=== PATIENT | female | born 1965 | race Caucasian/White ===

== ENCOUNTER 2018-03-18 02:09 | Inpatient (IN) | payer OTHER ==
[~2018-03-18] VITALS: Ht 154.9 cm; Wt 75.7 kg
[~2018-03-18 02:09] MED LIST: MAPAP500 M3 PO; TYLENOL PM EX-1 EACH PO; VIVANCE PO
--- NOTE | 2018-03-18 14:50 | Operative Report ---
Operative/Inv Procedure Report Surgery Date: 03/18/18 Name of Procedure: Right total hip replacement Pre-Operative Diagnosis: Primary right hip DJD Post-Operative Diagnosis: Same Estimated Blood Loss: 250 Surgeon/Fire Alarm Mechanic: Emiliana DURAN,Jose Maria Sosa Anesthesia: block Operative/Procedure Note Note: Description of Procedure: The patient was taken to the operating room and positively identified. After induction of spinal anesthesia and administration of appropriate pre-operative antibiotics, the patient was positioned supine on the operating room table and all bony prominences were well padded. After performing a surgical timeout, the right lower extremity was prepped and draped in the usual sterile fashion. A direct anterior approach was made to the right hip. The incision was carried sharply through superficial soft tissues to the level of the fascia. Meticulous hemostasis was maintained with Bovie electocautery. The fascia over the tensor fascia megan muscle was opened sharply and the interval between the TFL and the sartorius was entered bluntly taking care to stay lateral to the lateral femoral cutaneous nerve. Retractors were placed around the femoral neck and the pericapsular fat was identified. The ascending branches of the lateral femoral circumflex vessels were identified and carefully coagulated. The pericapsular fat and anterior capsule were then resected. A napkin ring osteotomy was performed and the femoral head was removed without difficulty. Attention was then turned to the acetabulum. After appropriate placement of retractors, the acetabulum was exposed. Soft tissue was cleaned from the acetabular margin and notch. Overhanging osteophytes were removed and the teardrop was exposed. The acetabulum was then sequentially reamed to accept a 52 mm Florencia Tritanium hemispherical solid shell. This was impacted into place in the appropriate position and fitted with a 32 mm Trident X3 zero degree polyethylene insert. Attention was then turned to the femur. After performing the appropriate ligament releases, the proximal femur was exposed. It was then sequentially broached to accept a size 3 Florencia Accolade II stem. This was trialed for leg length and stability. The trial component was removed and the final component was impacted into place. The trunnion was carefully cleaned and fit with a 32 mm, +0 Biolox delta ceramic femoral head. The hip was reduced and put through a full range of motion and found to be stable. The articular space was then irrigated with sterile saline. The periarticular soft tissues were infilitrated with Marcaine. The fascial layer was closed with interrupted #1 vicryl suture and the skin was re-approximated with interrupted 2 -0 vicryl. The skin was closed with a running 3-0 V-Lock suture. Steri-strips and a sterile dressing were applied. The patient was awakened and taken to the recovery room in satisfactory condition.
--- NOTE | 2018-03-18 14:55 | RADIOLOGY REPORT ---
EXAMINATION: XR HIP, RIGHT CLINICAL INFORMATION: Status post right total hip replacement in PACU. COMPARISON: None TECHNIQUE: Two views of the right hip. FINDINGS: The patient is status post total right hip arthroplasty with the prosthetic components well seated within the acetabulum and the femur. No hardware failure or [place] bone fracture is seen. Mild postoperative changes are seen with subcutaneous emphysema noted. IMPRESSION: No hardware failure or [place] bone fracture seen status post total right hip arthroplasty. Alignment is anatomic.
[2018-03-18] MEDS ORDERED: ASPIRIN EC81 M1 PO (15:39)
[2018-03-18] MEDS ORDERED: COLACE100 M1 PO (15:39)
[2018-03-18] MEDS ORDERED: PRILOSEC OTC20 M1 PO (15:39)
[2018-03-18] MEDS ORDERED: DILAUDID2 M1 PO (15:39)
[2018-03-18] MEDS ORDERED: MIRALAX17 G1 PO (15:39)
--- NOTE | 2018-03-18 15:43 | Patient Discharge Instructions ---
Discharge Instructions General Discharge Information You were seen/treated for: Right hip pain related to unilateral primary osteoarthritis You had these procedures: Right total hip replacement Watch for these problems: Increasing pain despite the use of pain medication Increasing redness, warmth or swelling Drainage of any type from incision Inability to bear weight on operative leg Persistent nausea and vomiting Fever greater than 101.5 degrees Do not soak the wound: Yes No bath, but you may shower: Yes Other wound care: Please keep wound clean and dry. No ointments or lotions of any type on or near incision at any time. No exceptions. Your dressing will be changed by your nurse on the second day after your surgery. Daily dry dressing changes are recommended each day thereafter. Do not soak your wound in a bath or pool at any time until otherwise indicated by your surgeon. You may shower, please dry wound immediately after shower with a clean towel. Special Instructions: Aspirin: You are taking this medication to help prevent blood clot formation. Please take with food to protect your stomach lining. Please take as directed. Constipation: Pain medication can cause constipation. Your surgeon has recommended that you take Colace and miralax each day. You may discontinue this medication if you develop loose stool or diarrhea. If you wish to continue this medication, it is available over the counter. If you are unable to move your bowels after several days, if you are unable to pass gas and are developing bloating, nausea, or vomiting as a result, please contact your doctor. Diet Continue normal diet: Yes Recommended Diet: Regular Activity Full Activity/No Limits: No Activity Self Limited: Yes Pounds, do NOT lift more than: 10 Acute Coronary Syndrome Inclusion Criteria At DC or during hospital stay patient has or had the following: ACS DIAGNOSIS No Discharge Core Measures Meds if any: Prescribed or Continued at Discharge Meds if any: NOT Prescribed or Continued at Discharge Congestive Heart Failure Inclusion Criteria At DC or during hospital stay patient has or had the following: CHF DIAGNOSIS No Discharge Core Measures Meds if any: Prescribed or Continued at Discharge Meds if any: NOT Prescribed or Continued at Discharge Cerebrovascular accident Inclusion Criteria At DC or during hospital stay patient has or had the following: CVA/TIA Diagnosis No Discharge Core Measures Meds if any: Prescribed or Continued at Discharge Meds if any: NOT Prescribed or Continued at Discharge Venous thromboembolism Inclusion Criteria VTE Diagnosis No VTE Type NONE VTE Confirmed by (Test) NONE Discharge Core Measures - Per Current guidelines, there needs to be overlap - treatment for the first 5 days of Warfarin therapy. - If discharged on Warfarin prior to 5 days of - overlap therapy, the patient will need to be - assessed for post discharge needs including - *Post discharge parental anticoagulation - *Warfarin and/or parental anticoagulation education - *Follow up date to check INR post discharge At least 5 days overlap therapy as Inpatient No Meds if any: Prescribed or Continued at Discharge Note: Overlap Therapy is Warfarin and Anticoagulant Meds if any: NOT Prescribed or Continued at Discharge
--- NOTE | 2018-03-18 15:48 | Surgical Discharge Summary ---
Visit Information Visit Dates Admission Date: 03/18/18 Discharge Date: 03/20/18 History of Present Illness Chief Complaint: Right hip pain related to unilateral primary osteoarthritis Surgical History Pertinent Surgical History: non-contributory Review of Systems: See H&P Hospital Course Course Attending Physician: Jose Maria Hopson MD Primary Care Physician: Quique DURAN,[facility] Course: Patient was admitted to the hospital for an elective total joint replacement. The procedure was tolerated well and patient was transferred to a general surgical floor. Diet was advanced and tolerated. The patient was evaluated and treated by physical therapy. At the time of hospital discharge, the vital signs were stable, neurovascular status was intact, and pain was controlled with the use of oral pain medications. Allergies: Coded Allergies: No Known Allergies (03/15/18) Disposition Summary Disposition Principal Diagnosis: Unilateral primary osteoarthritis right hip Additional Diagnosis: None Discharge Disposition: home health services Discharge Instructions General Discharge Information Code Status: Full Code Patient's Diet: Regular, advance as tolerated Patient's Activity: WBAT Follow-Up Instructions/Appts: Follow up with Dr. Hopson in 6 weeks from date of surgery. Please call office to arrange &/or confirm this appointment. Medications at Discharge Discharge Medications: Continue taking these medications: Acetaminophen (Mapap) 500 MG TABLET 2-3 Tablet ORAL as needed for PAIN Comments: 1000MG IV TYLENOL Last Taken:03/19/18 Time:1122AM [VIVANCE] 60 Milligram ORAL DAILY Comments: NOT GIVEN IN HOSPITAL Acetaminophen/Diphenhydramine (Tylenol Pm Ex-Strength Caplet) 500 MG-25 MG TABLET 1 Tablet ORAL DAILY Comments: NOT GIVEN IN HOSPITAL Start taking the following new medications: Aspirin (Ecotrin*) 81 MG TABLET.DR 1 Tablet ORAL TWICE DAILY Qty = 60 No Refills Comments: Last Taken:03/20/18 Time:0800AM Docusate Sodium (Colace) 100 MG CAPSULE 1 Capsule ORAL TWICE DAILY Qty = 14 No Refills Instructions: DISCONTINUE USE IF YOU DEVELOP LOOSE STOOL OR DIARRHEA Comments: Last Taken:03/20/18 Time:0800AM Polyethylene Glycol 3350 (Miralax) 17 GRAM POWD.PACK 1 Packet ORAL DAILY Qty = 7 No Refills Instructions: dissolve in water, DISCONTINUE USE IF YOU DEVELOP LOOSE STOOL OR DIARRHEA Comments: Last Taken:03/20/18 Time:0800AM Omeprazole Magnesium (Prilosec Otc) 20 MG TABLET.DR 2 Tablet ORAL DAILY Qty = 60 No Refills Comments: Last Taken:03/20/18 Time:0600AM Hydromorphone HCl (Dilaudid) 2 MG TABLET 1-2 Tablet ORAL EVERY 4-6 HOURS NEEDED as needed for PAIN Qty = 36 No Refills Comments: Last Taken:03/20/18 Time:0600AM 4MG GIVEN
--- NOTE | 2018-03-18 16:35 | PN- Orthopedic ---
Subjective Subjective: POC pt recovering well in PACU, minimal pain. Denies numbness but does still have tingling in both lower extremities. Tolerating ice chips, no nausea. Due to void Deneis CP, SOB and NEGRO Objective Vital Signs and I&Os VSS, afebrile Physical Exam: gen- NAD resp- clear cardiac- RRR abd- soft NT ext- R hip dressing clean and dry, thigh is soft, no erythema. No leg shortening or rotation. Distal sensory and motor function intact. 2+ DP pulse Current Medications: Current Medications Sig/Jannie Start time Last Medication Dose Route Stop Time Status Admin Acetaminophen 0 .STK-MED ONE 03/18 1039 DC PO Acetaminophen 975 MG ONCE 03/18 0000 NR PO 03/18 2359 Cefazolin Sodium 2,000 MG ONCE 03/18 0000 NR IV 03/18 2359 Oxycodone HCl 0 .STK-MED ONE 03/18 1039 DC PO Oxycodone HCl 10 MG ONCE 03/18 0000 NR PO 03/18 2359 Scopolamine HBr 0 .STK-MED ONE 03/18 1045 DC TOP Results Last 48 Hours of Labs: Laboratory Tests 03/18 0911 Urines Urine Test NEGATIVE Assessment/Plan Assessment/Plan 52yo F SP R EUGENE POD0. stable pain management PT- WBAT w RW reg diet, IVF overnight FU am labs regular home meds DVT ppx- asa, teds, alps dressing change POD2 DC planning- likely home tomorrow Core Measures Venous Thromboembolism VTE Risk Factors Surgery No Mechanical VTE Prophylaxis d/t N/A MechProphylax Ordered No VTE Pharm Prophylaxis d/t NA PharmProphylax ordered
[2018-03-18 16:55] VITALS: BP 100/60
[2018-03-18 20:03] VITALS: BP 108/64
[2018-03-18 22:09] VITALS: BP 106/64
[2018-03-19 00:06] VITALS: BP 104/68
[2018-03-19 04:04] VITALS: BP 100/68
--- NOTE | 2018-03-19 07:23 | PN- Orthopedic ---
Subjective Subjective: pt doing well, had some pain overnight but is now more comfortable. Voiding, was OOB to bathroom. Tolerating diet, no nausea. Denies paresthesias Denies CP/SOB and NEGRO Objective Vital Signs and I&Os Vital Signs Date Time Temp Pulse Resp B/P B/P Pulse O2 O2 Flow FiO2 Mean Ox Delivery Rate 03/19 0404 98.1 63 20 100/68 99 03/19 0006 97.9 61 20 104/68 99 03/18 2209 97.9 62 20 106/64 100 Room Air 03/18 2003 98.2 69 18 108/64 96 Room Air 03/18 1655 Room Air 03/18 165 97.8 76 18 100/60 100 Room Air Intake & Output 03/19 0800 03/19 0000 03/18 1600 03/18 0803/18 0000 03/17 1600 Intake Total 720 1300 Output Total 350 Balance 370 1300 Intake, IV 600 600 Intake, Oral 120 700 Output, Urine 350 Patient 167 lb Weight Physical Exam: gen- NAD resp- clear cardiac-RRR abd- soft, NT ext- Right hip dressing clean and dry, thigh soft, no erythema. distal sensory and motor function intat. 2+DP pulse. no leg shortening or rotation Current Medications: Current Medications Sig/Jannie Start time Last Medication Dose Route Stop Time Status Admin Acetaminophen 1,000 MG Q6 03/18 1800 AC 03/19 IV 03/19 1201 0555 Acetaminophen 0 .STK-MED ONE 03/18 1039 DC PO Acetaminophen 975 MG ONCE 03/18 0000 DC PO 03/18 2359 Aspirin Buffered 81 MG BID 03/18 2100 AC 03/18 PO 1933 Cefazolin Sodium 2 GM Q8H 03/18 1900 DC 03/19 N/A 1 UNIT IV 03/19 0329 0241 Cefazolin Sodium 2,000 MG ONCE 03/18 0000 DC IV 03/18 2359 Dexamethasone 4 MG .STK-MED ONE 03/18 1038 DC IM 03/18 1039 Dextrose/Sodium 1,000 ML .[id number] 03/18 1700 AC 03/19 Chloride IV 0241 Docusate Sodium 100 MG BID 03/18 2100 AC 03/18 PO 1933 Fentanyl Citrate 100 MCG .STK-MED ONE 03/18 1038 DC IM 03/18 1039 Hydromorphone HCl 2 MG Q4P PRN 03/18 1700 AC 03/19 PO 0600 Hydromorphone HCl 4 MG Q4P PRN 03/18 1700 AC 03/19 PO 0401 Ketorolac 15 MG Q8P PRN 03/18 1700 AC 03/18 Tromethamine IV 03/21 1657 2138 Midazolam HCl 2 MG .STK-MED ONE 03/18 1038 DC IM 03/18 1039 Morphine Sulfate 2 MG Q2P PRN 03/18 1700 AC 03/19 IV 0143 Omeprazole 40 MG DAILY AC 03/19 0700 AC 03/19 PO 0555 Ondansetron HCl 4 MG Q6P PRN 03/18 1700 AC IV Oxycodone HCl 0 .STK-MED ONE 03/18 1039 DC PO Oxycodone HCl 10 MG ONCE 03/18 0000 DC PO 03/18 2359 Polyethylene Glycol 17 GM DAILY 03/19 0900 AC PO Promethazine HCl 12.5 MG Q6P PRN 03/18 1700 AC IV 03/25 1344 Scopolamine HBr 0 .STK-MED ONE 03/18 1045 DC TOP Tranexamic Acid 2,000 MG .STK-MED ONE 03/18 1037 DC IV 03/18 1038 Results Last 48 Hours of Labs: Laboratory Tests 03/18 0911 Urines Urine Test NEGATIVE Assessment/Plan Assessment/Plan 52yo F SP R EUGENE POD1. stable. had some pain issue overngith but is now comfortable pain management PT- WBAT w RW reg diet, will DC IVF this morning FU am labs regular home meds DVT ppx- asa, teds, alps DC planning- likely home later today pending clearence by PT Core Measures Venous Thromboembolism VTE Risk Factors Surgery No Mechanical VTE Prophylaxis d/t N/A MechProphylax Ordered No VTE Pharm Prophylaxis d/t NA PharmProphylax ordered
[2018-03-19 07:56] VITALS: BP 110/60
[2018-03-19 08:14] LABS: ABSOLUTE BASOPHIL COUNT 0 /CUMM (0.0-0.2); ABSOLUTE EOSINOPHIL COUNT 0 /CUMM (0.0-0.7); ABSOLUTE GRANULOCYTE CT 9.7 /CUMM (1.4-6.5); ABSOLUTE LYMPH COUNT 1.7 /CUMM (1.2-3.4); BASOPHIL % 0.3 % (0.0-2.0); EOSINOPHIL % 0.1 % (0-5); HEMATOCRIT 31.4 % (37-47); MEAN CORPUSCULAR HGB 31.4 PG (27.0-31.0); MEAN CORPUSCULAR HGB CONC 34.7 G/DL (33.0-37.0); MEAN CORPUSCULAR VOLUME 90.3 FL (81.0-99.0); MEAN PLATELET VOLUME 7.8 FL (7.4-10.4); PLATELET COUNT 278 /CUMM (130-400); RBC DISTRIBUTION WIDTH 13.2 % (11.5-14.5); RED BLOOD CELL CT 3.48 /CUMM (4.20-5.40); WHITE BLOOD CELL COUNT 12.4 /CUMM (4.8-10.8)
[2018-03-19 12:14] VITALS: BP 100/60
[2018-03-19 13:33] VITALS: BP 100/60
[2018-03-19 22:00] VITALS: BP 114/66
[2018-03-20 07:01] VITALS: BP 116/60
--- NOTE | 2018-03-20 08:27 | PN- Orthopedic ---
Subjective Subjective: No events overnight. Patient states to be feeling well this am. Pain currently controlled with PO Dilaudid and MS Contin. Denies any numbness, tingling, or shooting pains. Tolerating diet without issue. Voiding freely. Denies any fevers , chills, chest pain, or SOB. Worked with PT yesterday who cleared patient for home. Objective Vital Signs and I&Os Vital Signs Date Time Temp Pulse Resp B/P B/P Pulse O2 O2 Flow FiO2 Mean Ox Delivery Rate 03/20 0701 98.1 70 20 116/60 98 Room Air 03/19 2200 98.2 76 20 114/66 100 Room Air 03/19 1333 97.6 70 20 100/60 99 Room Air 03/19 1214 97.9 63 20 100/60 98 Room Air Intake & Output 03/20 1600 03/20 0800 03/20 0000 03/19 1600 03/19 0800 03/19 0000 Intake Total 260 260 175 639 8185 Output Total 400 400 350 Balance -140 260 019 582 3071 Intake, IV 20 20 600 600 Intake, Oral 240 240 800 120 700 Output, Urine 400 400 350 Patient 167 lb Weight Physical Exam: Afebrile, VSS. Cardiac: RRR Pulmonary: CTAB RLE: Dressing c/d/i. Dressing taken down, incision c/d/i. Hankamer in place, no hematoma appreciated. New dressing applied. Thigh soft. Sensation and motor grossly intact. Able to wiggle toes. 5/5 foot strength. Foot is warm. + DP pulse. Calf soft, no tenderness. Assessment/Plan Assessment/Plan 52 yo F SP R EUGENE POD#2. Stable. Tolerating diet, pain well controlled with PO regimen. Cleared by PT for home. - Continue diet as tolerated - WBAT to RLE - PO pain control - Continue home medications - DVT ppx- asa, teds, alps - Plan for d/c home today - will d/w Dr. Hopson Core Measures Venous Thromboembolism VTE Risk Factors Surgery No Mechanical VTE Prophylaxis d/t N/A MechProphylax Ordered No VTE Pharm Prophylaxis d/t NA PharmProphylax ordered
== END 2018-03-20 13:33 | disposition home health service (06) | DRG 470 ==
LOC: SDA 02:09 → ENRESERV 16:00 → ENTRNSPT 16:24 → EDTRNSPTSTS 16:36 → EDTRNSPT 16:36 → 2NA 16:45 → CMPTRNSPT 16:57 → ENPENDDIS 03-20 09:50 → 2NA 03-20 13:33
PROVIDERS: Nurse Practitioner
PROC: 0SR902A Replacement of Right Hip Joint with Metal on Polyethylene Synthetic Substitute, Uncemented, Open Approach (ICD-10-PCS; principal; 2018-03-18)
DX: M16.11 Unilateral primary osteoarthritis, right hip (principal); E88.81 Metabolic syndrome and other insulin resistance; R36.0 Urethral discharge without blood; R00.9 Unspecified abnormalities of heart beat
CPT/HCPCS: 2NASP; 36592; 73502-RT; 81025; 82436; 88304; 97110-GO; 97116-GO; 97161-GP; 97530-GO; J0131; J0690; J0735; J1100; J2405; J2550; J7042